=== PATIENT | female | born 1960 | race Caucasian/White ===

== ENCOUNTER → 2018-05-22 | Outpatient (CLI) | payer BC | LOC: COL.RAD 12:14 | DX: K80.50 Calculus of bile duct without cholangitis or cholecystitis without obstruction (principal); K76.0 Fatty (change of) liver, not elsewhere classified; K82.8 Other specified diseases of gallbladder ==

== ENCOUNTER 2019-05-13 08:48 | Outpatient (RCR) | payer OTHER ==
[~2019-05-13 08:48] MED LIST: SYNTHROID 0.0.025 MG PO; TENORMIN100 MG PO; TYLENOL 325MG325 MG PO; XARELTO STARTER20 MG PO
== END 2019-05-21 13:48 | disposition home or self-care (01) ==
LOC: WSOH 08:48
DX: S29.012A Strain of muscle and tendon of back wall of thorax, initial encounter (principal)